=== PATIENT | female | born 2000 | race Caucasian/White ===

== ENCOUNTER 2020-07-25 23:11 | Emergency (ER) | payer MEDICAID ==
[~2020-07-25] VITALS: Ht 170.2 cm; Wt 108.9 kg
[2020-07-25 23:20] VITALS: BP_SYST 157
[2020-07-25] MEDS ORDERED: NACL 0.9% 1,000 ML IV ONE (23:30)
[2020-07-25 23:42] LABS: BILIRUBIN,URINE NEGATIVE (NEGATIVE); BLOOD, URINE NEGATIVE (NEGATIVE); CLARITY/URINE CLEAR (CLEAR); COLOR,URINE YELLOW (YELLOW); GLUCOSE,URINE NEGATIVE (NEGATIVE); KETONES,URINE NEGATIVE (NEGATIVE); LEUKOCYTE ESTERASE ,URINE NEGATIVE (NEGATIVE); NITRITE, URINE NEGATIVE (NEGATIVE); PH,URINE 5.5 (5.0-8.0); PROTEIN URINE NEGATIVE (NEGATIVE); UROBILINOGEN,URINE 0.2 (0.2-1.0)
[2020-07-25 23:53] LABS: BARBITURATE, URINE NEGATIVE (NEG <=200); BENZODIAZEPINE, URINE NEGATIVE (NEG <=150); CANNABINOID, URINE NEGATIVE (NEG <=50); COCAINE, URINE NEGATIVE (NEG <=150); METHAMPHETAMINES SCREEN,URINE NEGATIVE (NEG <=500); OPIATE, URINE NEGATIVE (NEG <=100); PHENCYCLIDINE SCREEN,URINE NEGATIVE (NEG <=25); UR TRICYCLIC ANTIDEPRESSANTS NEGATIVE (NEG <=300); URINE AMPHETAMINE NEGATIVE (NEG <=500); URINE METHADONE NEGATIVE (NEG <=200); URINE OXYCODONE SCREEN NEGATIVE (NEG <=100); URINE PROPOXYPHENE SCREEN NEGATIVE (NEG <=300)
[2020-07-26 00:08] LABS: BASOPHILS # (AUTO) 0.1 K/uL (0.0-0.2); BASOPHILS % (AUTO) 0.5 % (0.0-2.0); EOSINOPHILS # (AUTO) 0.2 K/uL (0.0-0.4); EOSINOPHILS % (AUTO) 1.3 % (0.0-4.0); HEMOGLOBIN 12.1 g/dL (12.0-16.0); LYMPHOCYTES # (AUTO) 3.6 K/uL (1.0-5.5); LYMPHOCYTES % (AUTO) 26.3 % (20.5-51.5); MEAN CORPUSCULAR HEMOGLOBIN 24 pg (27-31); MEAN CORPUSCULAR HGB CONC 32 % (32-36); MEAN CORPUSCULAR VOLUME 74 fL (79.0-98.0); MONOCYTES # (AUTO) 0.9 K/uL (0.0-1.0); MONOCYTES % (AUTO) 6.4 % (1.7-9.3); NEUTROPHILS # (AUTO) 9.1 K/uL (1.8-7.7); NEUTROPHILS % (AUTO) 65.5 % (40.0-70.0); PLATELET COUNT (AUTO) 430 K/uL (130-430); RED BLOOD CELL COUNT(AUTO) 5.11 MIL/uL (4.2-6.2); RED CELL DISTRIBUTION WIDTH 15.8 % (9.0-15.0); WHITE BLOOD COUNT (AUTO) 13.9 K/uL (4.5-11.0)
[2020-07-26 00:18] LABS: CREATININE 0.8 mg/dL (0.55-1.30); POTASSIUM 3.9 mmol/L (3.5-5.1)
[2020-07-26] MEDS ORDERED: ONDANSETRON HCL 4 MG/2 ML VIAL IVP ONE (00:30)
[2020-07-26] MEDS ORDERED: KETOROLAC TROMETHAMINE 30 MG VIAL IVP ONE (00:30)
[2020-07-26 00:34] LABS: ALBUMIN 3.8 g/dL (3.4-4.8); TOTAL BILIRUBIN 0.4 mg/dL (0.0-1.0)
[2020-07-26] MEDS ORDERED: NACL 0.9% 1,000 ML IV ONE (01:15)
[2020-07-26] MEDS ORDERED: MORPHINE 4 MG INJ. 4 MG/ML VIAL IVP ONE (01:15)
[2020-07-26] MEDS ORDERED: cefTRIAXone 1 GM in D5W 50 ML IV ONE (03:30)
[2020-07-26] MEDS ORDERED: DOXY100C2 PO (03:32)
[2020-07-26] MEDS ORDERED: ONDA-8 TL (03:32)
[2020-07-26] MEDS ORDERED: IBUP-1969 PO (03:32)
[2020-07-26 03:40] VITALS: BP_SYST 123
[2020-07-28 03:06] LABS: CHLAMYDIA TRACHOMATIS NAA Negative (Negative); NEISSERIA GONORRHOEAE NAA Negative (Negative)
== END 2020-07-26 03:40 | disposition home or self-care (01) ==
LOC: SED 23:11
DX: R10.11 Right upper quadrant pain (principal)
CPT/HCPCS: 36415; 74176; 76376; 76700; 80053; 80307; 81003; 81025; 83605; 83690; 84702; 85025; 87210; 87491; 87591; 96361 ×2; 96365; 96375; 99285; J1885; J2270; J2405; J7030 ×2